=== PATIENT | female | born 1930 | race Caucasian/White ===

== ENCOUNTER 2020-06-25 11:11 | Emergency (ER) | payer MEDICARE ==
[~2020-06-25 11:11] MED LIST: ASPIR 8181 MG PO; CHLORTHALIDONE25 MG PO; CYANOCOBAL1000 MCG/1 INJ; EDARBI40 MG PO; FORTEO 250250 MCG/ML SC; LEVOXYL75 MCG PO; PRAVACHOL40 MG PO; VITAMIN D2000 UNI1 PO
[2020-06-25 11:53] LABS: HEMOGLOBIN 11.9 gm/dl (12.3-15.3); RED BLOOD COUNT 3.82 M/UL (4.00-5.10); WHITE BLOOD COUNT 6.5 K/UL (4.5-11.0)
== END 2020-06-25 22:05 | disposition home or self-care (01) ==
LOC: ER1 11:11
PROVIDERS: Physician Assistant
DX: R42 Dizziness and giddiness (principal); R11.2 Nausea with vomiting, unspecified; E78.5 Hyperlipidemia, unspecified; I10 Essential (primary) hypertension; E03.9 Hypothyroidism, unspecified; Z79.899 Other long term (current) drug therapy
CPT/HCPCS: 36600; 70450; 70496; 70498; 71045; 80053; 81001; 82803; 84484; 85025; 85379; 85610; 85730; 93005; 96374; 96375; 96376; 99284; J2405; J2930; J7030; Q9965

== ENCOUNTER 2021-05-30 10:04 | Emergency (ER) | payer MEDICARE ==
[2021-05-30 11:34] LABS: HEMOGLOBIN 12.2 gm/dl (12.3-15.3); RED BLOOD COUNT 3.94 M/UL (4.00-5.10); WHITE BLOOD COUNT 6.4 K/UL (4.5-11.0)
[2021-05-30 12:01] LABS: BUN/CREATININE RATIO 13 (0-10)
[2021-05-30] MEDS ORDERED: CYCLOBENZAPRINE5 MG PO (14:50)
== END 2021-05-30 15:05 | disposition home or self-care (01) ==
LOC: ER1 10:04
PROVIDERS: Physician Assistant
DX: R20.2 Paresthesia of skin (principal); I10 Essential (primary) hypertension; Z79.82 Long term (current) use of aspirin; E78.5 Hyperlipidemia, unspecified
CPT/HCPCS: 70450; 71045; 80053; 82550; 82553; 83874; 84484; 85025; 93005; 99284